=== PATIENT | male | born 1980 | race Caucasian/White ===

== ENCOUNTER → 2019-08-21 | Outpatient (CLI) | payer OTHER ==
--- NOTE | 2019-08-21 09:21 | MRI ---
MRI right wrist without contrast INDICATION: Wrist pain no specific injury calcific tendinitis TECHNIQUE: Noncontrast MR imaging right wrist standard protocol FINDINGS: Mild degenerative signal TFC. No communicating defect. No evidence of carpal instability. No fracture or destructive lesion. No advanced arthrosis. No tendon disruption. No tenosynovitis. Regional nerves appear intact. IMPRESSION: Mild degenerative change TFC. No communicating defect Otherwise negative MRI of the wrist Electronically signed by: Jorje Bedoya MD 08/21/2019 9:19 AM CDT
== END ==
LOC: MRI 08:14
PROVIDERS: ATTEND Family Medicine
DX: M65.231 Calcific tendinitis, right forearm (principal); M19.031 Primary osteoarthritis, right wrist

== ENCOUNTER → 2020-04-16 | Outpatient (CLI) | payer OTHER | LOC: GMALP 13:34 | PROVIDERS: ATTEND Family Medicine | DX: R53.82 Chronic fatigue, unspecified (principal) ==